=== PATIENT | female | born 1995 | race Hispanic/Latino ===

== ENCOUNTER 2021-12-12 09:11 | Outpatient (CLI) | payer OTHER | END 2021-12-12 09:12 | disposition home or self-care (01) | LOC: CSHLAB 09:11 | PROVIDERS: ATTEND Family Medicine | DX: Z20.822 Contact with and (suspected) exposure to COVID-19 (principal) | CPT/HCPCS: 87811 ==

== ENCOUNTER 2021-12-13 03:09 | Day surgery (SDC) | payer OTHER ==
[2021-12-13 03:46] VITALS: BMI 29.2
[2021-12-13] MEDS ORDERED: hydrALAZINE 20 MG/ML VIAL SLOW IVP PRN (06:33)
[2021-12-13] MEDS ORDERED: Promethazine HCl 25 MG/ML VIAL IM SCH (06:45)
[2021-12-13] MEDS ORDERED: Morphine 10 MG/ML VIAL IM SCH (06:45)
== END 2021-12-13 07:40 | disposition home or self-care (01) ==
LOC: CSHLD/OP 03:09
PROVIDERS: ATTEND Family Medicine
DX: O47.1 False labor at or after 37 completed weeks of gestation (principal); Z3A.39 39 weeks gestation of pregnancy; Z79.899 Other long term (current) drug therapy; Z98.890 Other specified postprocedural states
CPT/HCPCS: 96372; 99283; J2270; J2550

== ENCOUNTER 2021-12-13 13:48 | Inpatient (IN) | payer OTHER ==
[~2021-12-13 13:48] MED LIST: Bupivacaine/Epinephrine 0.25% 30 ML VIAL ONE
[2021-12-13 14:27] VITALS: BMI 29.2
[2021-12-13] MEDS ORDERED: Lidocaine 1% (PF) 30 ML VIAL SC PRN (14:38)
[2021-12-13] MEDS ORDERED: hydrALAZINE 20 MG/ML VIAL SLOW IVP PRN (14:38)
[2021-12-13] MEDS ORDERED: HYDROcodone/Acetaminophen 5/325 mg Tablet PO PRN ×2 (14:38)
[2021-12-13] MEDS ORDERED: Butorphanol Tartrate 1 MG/ML VIAL SLOW IVP PRN (14:38)
[2021-12-13] MEDS ORDERED: Acetaminophen 500 MG TAB PO PRN (14:38)
[2021-12-13] MEDS ORDERED: Promethazine HCl 25 MG/ML VIAL IM PRN ×2 (14:38→17:42)
[2021-12-13] MEDS ORDERED: Ondansetron PF 4 MG/2 ML Vial IVP PRN ×2 (14:38→17:42)
[2021-12-13] MEDS ORDERED: Ibuprofen 800 MG TAB PO PRN (14:38)
[2021-12-13] MEDS ORDERED: Lactated Ringer's 1,000 ML IV SCH ×2 (14:45)
[2021-12-13] MEDS ORDERED: Penicillin G 2.5 MILL.units 2.5 MILL.UNITS in Premix Bag 1 BAG IVPB SCH (14:45)
[2021-12-13] MEDS ORDERED: NS w/ Oxytocin 30 units 500 ML IV SCH ×2 (14:45)
[2021-12-13] MEDS ORDERED: Penicillin G Potassium 5 MILL.UNITS in Sodium Chloride 0.9% 100 ML IVPB SCH (14:45)
[2021-12-13] MEDS ORDERED: Fentanyl 2 mcg/Bup 0.1% Cadd 100 ML ONE (15:26)
[2021-12-13 15:30] LABS: Hemoglobin 10.9 g/dL (12.0-15.5); Mean Corpuscular Volume 81.9 fl (81.6-98.3); Mean Platelet Volume 10.6 fl (7.4-10.4); Platelet Count 309 10x3/uL (150-450); Red Blood Cell (RBC) Count 4.03 10x6/uL (3.90-5.03); White Blood Cell (WBC) Count 16.9 10x3/uL (3.5-10.5)
[2021-12-13 16:12] LABS: Hep B Surf Ag Non-Reactive S/CO (NonReactive)
[2021-12-13 17:14] LABS: Syphilis Antibody Nonreactive (Nonreactive); Syphilis Antibody Index 0.04 S/CO (<1.00 Non-Reactive)
[2021-12-13] MEDS ORDERED: Acetaminophen 325 MG TAB PO PRN (17:42)
[2021-12-13] MEDS ORDERED: diphenhydrAMINE 50 MG/ML VIAL IVP PRN (17:42)
[2021-12-13] MEDS ORDERED: ePHEDrine Sulfate 50 MG/10 ML VIAL SLOW IVP PRN (17:42)
[2021-12-13] MEDS ORDERED: Moisturizing Cream (Eucerin) 113 GM JAR TOP PRN (17:42)
[2021-12-13] MEDS ORDERED: Naloxone HCl 0.4 mg/ml Vial IVP PRN ×2 (17:42)
[2021-12-13] MEDS ORDERED: Fentanyl 2 mcg/Bupivacaine 0.1% Cassette 100 ML EPIDURAL SCH (17:45)
[2021-12-13] MEDS ORDERED: Communication Order-Pharmacy FS SCH (17:45)
[2021-12-13] MEDS ORDERED: Lactated Ringer's 500 ML IV PRN (17:48)
[2021-12-14] MEDS ORDERED: HYDROcodone/Acetaminophen 5/325 mg Tablet PO PRN (00:46)
[2021-12-14] MEDS ORDERED: Promethazine HCl 25 MG/ML VIAL IM PRN (00:46)
[2021-12-14] MEDS ORDERED: Lanolin Ointment 7 GM TUBE TOP PRN (00:46)
[2021-12-14] MEDS ORDERED: Bisacodyl 10 MG SUPP PR PRN (00:46)
[2021-12-14] MEDS ORDERED: Boostrix 0.5 ML (Tdap) VIAL (>/=7 yrs of age) IM ONE (00:46)
[2021-12-14] MEDS ORDERED: Ondansetron PF 4 MG/2 ML Vial IVP PRN (00:46)
[2021-12-14] MEDS ORDERED: NS w/ Oxytocin 30 units 500 ML IV SCH (00:46)
[2021-12-14] MEDS ORDERED: Milk Of Magnesia 30 ML UDCUP PO PRN (00:46)
[2021-12-14] MEDS ORDERED: hydrALAZINE 20 MG/ML VIAL SLOW IVP PRN (00:46)
[2021-12-14] MEDS ORDERED: Benzocaine-Menthol 82.5 ML CAN TOP PRN (00:46)
[2021-12-14] MEDS ORDERED: diphenhydrAMINE 25 MG CAP PO PRN (00:46)
[2021-12-14] MEDS: Ibuprofen 800 MG TAB PO SCH ×3 (01:37→17:30)
[2021-12-14] MEDS: Prenatal Vitamin 1 TAB PO SCH (09:00)
[2021-12-14] MEDS: Ferrous Sulfate 325 MG TAB PO SCH ×2 (09:00→16:21)
[2021-12-14] MEDS: Docusate 100 MG CAP PO SCH ×2 (09:00→20:54)
[2021-12-14] MEDS: HYDROcodone/Acetaminophen 5/325 mg Tablet PO PRN (13:49)
[2021-12-15] MEDS: Ibuprofen 800 MG TAB PO SCH ×2 (00:03→07:50)
[2021-12-15] MEDS: Prenatal Vitamin 1 TAB PO SCH (07:50)
[2021-12-15] MEDS: Docusate 100 MG CAP PO SCH (07:50)
[2021-12-15] MEDS: HYDROcodone/Acetaminophen 5/325 mg Tablet PO PRN (07:51)
[2021-12-15 08:14] VITALS: BP 97/60; TEMP 97.6
[2021-12-15] MEDS: Ferrous Sulfate 325 MG TAB PO SCH (08:14)
== END 2021-12-15 14:45 | disposition home or self-care (01) | DRG 807 ==
LOC: CSHLD/OP 13:48 → CSHLD 15:36 → CSHPP 12-14 00:45
PROVIDERS: ADMIT Family Medicine; ATTEND Family Medicine
PROC: 10E0XZZ Delivery of Products of Conception, External Approach (ICD-10-PCS; principal; 2021-12-13)
PROC: 10907ZC Drainage of Amniotic Fluid, Therapeutic from Products of Conception, Via Natural or Artificial Opening (ICD-10-PCS; 2021-12-13)
PROC: 0UQG7ZZ Repair Vagina, Via Natural or Artificial Opening (ICD-10-PCS; 2021-12-13)
DX: O99.824 Streptococcus B carrier state complicating childbirth (principal); Z37.0 Single live birth; Z3A.39 39 weeks gestation of pregnancy; Z79.899 Other long term (current) drug therapy; O71.4 Obstetric high vaginal laceration alone
CPT/HCPCS: 51702; 85027; 86780; 86850; 86900; 86901; 87340; 96372; 99283; J2270; J2405; J2540; J2550; J2590; J3490; J7120